=== PATIENT | female | born 1945 | race Caucasian/White ===

== ENCOUNTER 2017-02-06 08:14 | Inpatient (IN) | payer MEDICARE, OTHER ==
[2017-02-06] MEDS ORDERED: IPRATROPIUM/ALBUTEROL 0.5/3 MG 3 ML AMPUL.NEB INHALATION ONE ×2 (08:33→09:05)
[2017-02-06 09:13] LABS: BASOPHILS 0.3 % (0.0-2.0); BLOOD UREA NITROGEN 12 mg/dL (7-17); CALCIUM 9.6 mg/dL (8.4-10.2); CHLORIDE 105 mmol/L (98-107); EOSINOPHILS# 0.2 X 10^3uL (0.0-0.4); EST GLOMERULAR FILTRATION RATE > 60 mL/min; GLUCOSE 126 mg/dL (70-100); HEMATOCRIT 35.6 % (36.0-48.0); HEMOGLOBIN 11.4 g/dL (12.0-16.0); LYMPHOCYTES# 1.4 X 10^3uL (0.8-3.8); MEAN CELL VOLUME 84.1 fL (80.0-100.0); MEAN CORPUS. HGB CONCENTRATION 32.2 g/dL (32.0-36.0); MEAN CORPUSCULAR HEMOGLOBIN 27.1 pg (29.0-35.0); MEAN PLATELET VOLUME 8.1 fL (7.4-10.4); MONOCYTES 10.5 % (2.0-10.0); MONOCYTES# 1.6 X 10^3uL (0.2-1.0); NEUTROPHILS 79.2 % (54.0-75.0); NEUTROPHILS# 12.2 X 10^3uL (2.6-6.7); POTASSIUM 3.6 mmol/L (3.5-5.1); RED BLOOD COUNT 4.23 X 10^6uL (4.20-6.10); SODIUM 140 mmol/L (137-145); WHITE BLOOD COUNT 15.4 X 10^3uL (3.9-10.7)
[2017-02-06] MEDS ORDERED: cefTRIAXone SODIUM 1,000 MG/10 ML VIAL ONE (09:13)
[2017-02-06] MEDS ORDERED: AZITHROMYCIN 250 MG TABLET PO ONE (09:13)
[2017-02-06] MEDS ORDERED: NORMAL SALINE 100 ML IV ONE (09:13)
[2017-02-06] MEDS ORDERED: FAMOTIDINE 20 MG TABLET PO PRN (09:29)
[2017-02-06] MEDS ORDERED: ACETAMINOPHEN 325 MG TABLET PO PRN (09:29)
[2017-02-06] MEDS ORDERED: HOME MEDICATION LIST NEEDED 1 EA EACH MC ONE (09:29)
[2017-02-06 09:32] LABS: PLATELET COUNT 684 X 10^3uL (130-440)
[2017-02-06 09:34] LABS: RED CELL DISTRIBUTION WIDTH 16.6 % (11.5-14.5)
[2017-02-06] MEDS ORDERED: METHYLPREDNISOLONE SOD 125 MG/2 ML VIAL ONE (09:39)
--- NOTE | 2017-02-06 09:42 | RADIOLOGY REPORT ---
HISTORY: Shortness of breath COMPARISON: None. FINDINGS: 1 view of the chest obtained. Hyperinflated appearance of the lungs with mild increased interstitial markings most compatible with emphysema and pulmonary scarring. No discrete infiltrate. No effusion o r pneumothorax. Heart size is normal. Mediastinal contours are unremarkable. Degenerative changes of the thoracic spine. Otherwise the osseous structures appear normal. IMPRESSION: 1. Manifestations of emphysema and interstitial scarring. 2. No discrete active disease in the chest. Final Electronic Signature: This report was electronically signed by Baldo Miles MD on 02/06/2017 9:40 AM. ash /
--- NOTE | 2017-02-06 09:52 | ER PHYSICIAN DOCUMENTATION ---
Physician Documentation [facility] Name:Christal Ragland Age:71 yrs Sex:Female :1945 Arrival Date:02/06/2017 Time:08:14 Bed4 Private MD: Santos Ruiz Disposition: 02/06 09:25 Critical Care: not applicable. cd 09:50 Chart complete. cd Disposition: 02/06/17 09:26 Admit ordered for Cristina Rodriguez. Preliminary diagnosis are Pneumonia Bacterial, Hypoxia, Bronchospasm- Acute. - Bed requested for Medical/Surgical. - Condition is Fair. - Problem is new. - Symptoms have improved. 23 HR OBS Yes HPI: 09:45 This 71 yrs old Female presents to ER via Private Vehicle with complaints of cd Shortness Of Breath, cough and sputum production. 09:45 The patient has shortness of breath at rest, that occurred at home, and the patient has cd a history of smoking, quit 20 years ago. No history of COPD, Asthma, PE, [place], CAD or recent Pneumonia. The patient started with a cough and yellow sputum production 3 weeks ago in [place] before leaving for [place]. It has continued over the past few weeks. She has had no fever but some chills. No rigors. This morning she and her were supposed to leave for [place], but she was SOB and had a deep cough with wheezing. She denies calf swelling or pain. She has had very mild chest discomfort that increases with her cough. She if on Rituxan, Methotrexate and Prednisone for her Rheumatoid Arthritis. She is currently on 10 mg of Prednisone each day.. Onset: The symptom(s)/episode began/occurred gradually, 3 week(s) ago. Duration: The symptoms are continuous, and are steadily getting worse. The patient's shortness of breath is aggravated by coughing, is alleviated by nebulizer treatment, in the ED helped. Associated signs and symptoms: Pertinent positives: chest pain, productive cough, Pertinent negatives: diaphoresis, dizziness, fever, hemoptysis, nausea, vomiting. Severity of symptoms: At their worst the symptoms were moderate in the emergency department the symptoms are unchanged. Risk Factors Risk factors for coronary artery disease include: This patient is a smoker. The risk factors for pulmonary embolism include: This patient is a smoker. This patient has been traveling recently. The patient has not experienced similar symptoms in the past. Historical: - Allergies: No known drug Allergies; - Home Meds: 1. Prednisone Oral 2. Folic Acid Oral 3. Amoxicillin Oral - PMHx: ARTHRITIS; - Tetanus: < 10 years. - Ebola Screening: : Patient denies exposure to infectious person. Patient denies travel to an Ebola-affected area in the 21 days before illness onset. . - Social history: Smoking status: Patient states was never smoker of tobacco. Patient uses alcohol occasionally. marijuana. ROS: 09:45 ENT: Negative for injury, pain, epistaxis and discharge. cd Neck: Negative for injury, pain, stiffness and swelling. Abdomen/GI: Negative for abdominal pain, nausea, vomiting, diarrhea, constipation, distension, melena, hematochezia and hematemesis. Back: Negative for injury, pain or muscle spasms. : Negative for injury, bleeding, discharge, dysuria, frequency, urgency and swelling. MS/Extremity: Negative for injury, deformity, edema, calf tenderness, pain or coldness. Skin: Negative for injury, rash, itching and discoloration. 09:45 Neuro: Negative for headache, weakness, numbness, tingling, and seizure. cd 09:45 Constitutional: Positive for chills, poor PO intake, Negative for fever. 09:45 Cardiovascular: Positive for chest pain, with cough, Negative for edema, palpitations. 09:45 Respiratory: Positive for cough, with yellow sputum, shortness of breath, wheezing, Negative for hemoptysis, orthopnea, pleurisy. 09:45 All other systems are negative. Exam: Head/Face: Normocephalic, atraumatic. Eyes: Pupils equal round and reactive to light, extra-ocular motions intact. Lids and lashes normal. Conjunctiva and sclera are non-icteric and not injected. Cornea within normal limits. Periorbital areas with no swelling, redness, or edema. ENT: Nares patent. No nasal discharge, no septal abnormalities noted. Tympanic membranes are normal and external auditory canals are clear. Oropharynx with no redness, swelling, or masses, exudates, or evidence of obstruction, uvula midline. Mucous membranes moist. Neck: Trachea midline, no thyromegaly or masses palpated, and no cervical lymphadenopathy. Supple, full range of motion without nuchal rigidity, or vertebral point tenderness. No Meningismus. Chest/axilla: Normal chest wall appearance and motion. Nontender with no deformity. No lesions are appreciated. Abdomen/GI: Soft, non-tender, with normal bowel sounds. No distension or tympany. No guarding or rebound. No evidence of tenderness throughout. Back: No spinal tenderness. No costovertebral tenderness. Full range of motion. Skin: Warm, dry with normal turgor. Normal color with no rashes, no lesions, and no evidence of cellulitis. MS/ Extremity: Pulses equal, no cyanosis. Neurovascular intact. Full, normal range of motion. 09:45 Neuro: Awake and alert, GCS 15, oriented to person, place, time, and situation. cd Cranial nerves II-XII grossly intact. Motor strength 5/5 in all extremities. Sensory grossly intact. Cerebellar exam normal. Normal gait. 09:45 Constitutional: The patient appears alert, awake, non-diaphoretic, non-toxic, well developed, well nourished, in obvious distress, moderately distressed. 09:45 Cardiovascular: Rate: tachycardic, actual rate is 110 bpm, Rhythm: regular, Pulses: no pulse deficits are appreciated, Heart sounds: normal, Edema: is not appreciated. 09:45 Respiratory: mild respiratory distress is noted, Respirations: labored breathing, that is mild, accessory muscle usage, is absent, intercostal retractions, are absent, Breath sounds: rales, that are moderate, are located in both bases, rhonchi, that are mild, are scattered, wheezing, that is moderate, is heard diffusely. Vital Signs: 08:15 BP 137 / 99; Pulse 117; Resp 28; Temp 98.7; Pulse Ox 82% on R/A; Pain 3/10; st 09:26 BP 135 / 93 (auto/); st 09:30 Pulse 109 MON; Resp 23; Pulse Ox 90% on 4 lpm NC; st [place] Coma Score: 09:45 Eye Response: spontaneous(4). Verbal Response: oriented(5). Motor Response: obeys cd commands(6). Total: 15. MDM: 08:24 Patient medically screened. cd 08:25 Data interpreted: Pulse oximetry: on room air is 82 %. Interpretation: hypoxia. Plan: cd will initiate a nebulizer treatment. 08:40 Differential diagnosis: Anemia asthma, CHF exacerbation, Chronic Obstructive Pulmonary cd Disease Myocardial Infarction pneumonia, pulmonary edema, Pulmonary Embolism Sepsis. 08:50 Data reviewed: vital signs, nurses notes, old medical records, lab test result(s), EKG, cd radiologic studies, plain films, and as a result, I will admit patient, administer antibiotics Rocephin, Zithromax, administer steroids, Solumedrol, and Duonebs. 09:05 Antibiotic administration: Rocephin and Zithromax given. 09:20 Counseling: I had a detailed discussion with the patient and/or guardian regarding: the cd historical points, exam findings, and any diagnostic results supporting the discharge/admit diagnosis, lab results, radiology results, the need for further work-up and treatment in the hospital, risk of leaving the Emergency Department, without completed treatment. ECG:. Response to treatment: the patient's symptoms have markedly improved after treatment, and as a result, I will admit patient. 02/06 09:17 Order name: BASIC METABOLIC PANEL; Complete Time: 10:59 [facility] 02/06 09:23 Interpretation: Normal Except: CARBON DIOXIDE 21; GLUCOSE 126. 02/06 09:35 Order name: CBC AUTO DIF, MDIF/RMOR IF IND; Complete Time: 10:59 [facility] 02/06 09:36 Interpretation: Abnormal: WHITE BLOOD COUNT 15.4; HEMOGLOBIN 11.4; HEMATOCRIT 35.6; PLATELET COUNT 684; NEUTROPHILS 79.2; Elevated WBC with Left shift, Anemia, Thrombocytosis. 02/06 10:10 Order name: TROPONIN I; Complete Time: 10:59 [facility] 02/06 10:59 Interpretation: Normal. 02/06 14:58 Order name: SPUTUM CULTURE AND GRAM STAIN [facility] 02/07 07:39 Order name: CBC AUTO DIF, MDIF/RMOR IF IND [facility] 02/07 07:45 Order name: BASIC METABOLIC PANEL [facility] 02/07 07:45 Order name: HEPATIC PANEL [facility] 02/07 07:45 Order name: TROPONIN I [facility] 02/07 08:58 Order name: BLOOD CULTURE [facility] 02/07 08:58 Order name: BLOOD CULTURE [facility] 02/07 11:25 Order name: DDIMER [facility] 02/07 18:51 Order name: C-REACTIVE PROTEIN [facility] 02/08 07:09 Order name: BASIC METABOLIC PANEL [facility] 02/08 07:09 Order name: IRON PANEL [facility] 02/08 07:39 Order name: CBC W/ MANUAL DIFFERENTIAL [facility] 02/08 08:02 Order name: OCCULT BLOOD (1-3 SAMPLES) [facility] 02/08 08:07 Order name: C-REACTIVE PROTEIN [facility] 02/08 09:02 Order name: TROPONIN I [facility] 02/06 09:44 Order name: CHEST; SINGLE [place]IEW [id number]; Complete Time: 09:46 [facility] 02/07 13:48 Order name: CXR 2V [id number] [facility] 02/06 08:30 Order name: I & O; Complete Time: 09:16 st 02/06 08:30 Order name: Oxygen; Complete Time: 09:16 st 02/06 08:30 Order name: Place Patient On Monitor; Complete Time: 09:29 st 02/06 08:30 Order name: Pulse Ox Continuous; Complete Time: 08:31 st 02/06 09:44 Order name: EKG - 12 Lead cd EC:45 Rate is 95 beats/min. Rhythm is regular. TX interval is normal. QRS interval is normal. cd QT interval is normal. No Q waves. T waves are Normal. No ST changes noted. Clinical impression: Normal ECG, No evidence of ischemia, and Left Anterior Fasicular Block. Interpreted by me. Dispensed Medications: 08:20 Drug: DuoNeb (Albuterol 2.5 mg, Atrovent 0.5 mg); 3 ml; Route: Nebulizer; st 09:50 Follow up: Response: helped a little st 08:52 Drug: DuoNeb (Albuterol 2.5 mg, Atrovent 0.5 mg); 3 ml; Route: Nebulizer; st 09:51 Follow up: Response: helped some more st 09:03 Drug: Rocephin 1 grams; Route: IVPB; Site: left forearm; st 09:20 Follow up: IV Status: Completed infusion; IV Intake: 100ml st 09:03 Drug: Zithromax 500 mg; Route: PO; st 09:51 Follow up: Response: No adverse reaction st 09:28 Drug: Solu-MEDROL 80 mg; Route: IVP; Site: left forearm; st 09:51 Follow up: Response: No adverse reaction st Signatures: Tri Perez, RN RN Santos Hamlin MD MD cd
--- NOTE | 2017-02-06 09:52 | ER NURSING DOCUMENTATION ---
Nurse's Notes [facility] Name:Christal Ragland Age:71 yrs Sex:Female :1945 Arrival Date:02/06/2017 Time:08:14 Bed4 Private MD: Diagnosis:Pneumonia Bacterial;Hypoxia;Bronchospasm- Acute Presentation: 02/06 08:15 Presenting complaint: Patient states: pt states she has had a Sinus infection for a few st days and woke up this AM unable to breath. Transition of care: Home. 08:15 Method Of Arrival: Private Vehicle st 08:28 Acuity: CLARISA 2 st 08:31 Notified ED Physician of Dr. Singh notified. st Triage Assessment: 08:15 General: Appears uncomfortable, panting for breath troubles talking in full sentances.. st Behavior is cooperative. Pain: Complains of pain in chest Pain currently is 3 out of 10 on a pain scale. Cardiovascular: tachy. Heart tones present Rhythm is sinus tachycardia. Respiratory: Airway is patent Respiratory effort is even, labored, Respiratory pattern is regular, symmetrical, Sputum is yellow Breath sounds with wheezes bilaterally. Reports shortness of breath at rest on exertion cough that is productive, pain with cough Onset: The symptoms/episode began/occurred gradually, the patient has moderate shortness of breath. GI: No deficits noted. Historical: - Allergies: No known drug Allergies; - Home Meds: 1. Prednisone Oral 2. Folic Acid Oral 3. Amoxicillin Oral - PMHx: ARTHRITIS; - Tetanus: < 10 years. - Ebola Screening: : Patient denies exposure to infectious person. Patient denies travel to an Ebola-affected area in the 21 days before illness onset. . - Social history: Smoking status: Patient states was never smoker of tobacco. Patient uses alcohol occasionally. marijuana. Screenin:34 Infectious Disease Risk None. Abuse screen: Denies threats or abuse. Denies injuries st from another. pt feels safe at home. Nutritional screening: No deficits noted. Assessment: 09:40 General: pt lungs are not as tight. There are still expiatory wheezes and crackles in st all camacho. . Vital Signs: 08:15 BP 137 / 99; Pulse 117; Resp 28; Temp 98.7; Pulse Ox 82% on R/A; Pain 3/10; st 09:26 BP 135 / 93 (auto/); st 09:30 Pulse 109 MON; Resp 23; Pulse Ox 90% on 4 lpm NC; [address] [place] Coma Score: 09:45 Eye Response: spontaneous(4). Verbal Response: oriented(5). Motor Response: obeys cd commands(6). Total: 15. ED Course: 08:14 Patient arrived in ED. ds 08:20 Oxygen Oxygen administration via nasal cannula @ 2L/min. st 08:20 Valuables Patient has correct armband on for positive identification. Placed in gown. st Bed in low position. Call light in reach. Side rails up X 1. monitoring analyst on. Pulse ox on. NIBP on. 08:23 Santos Singh MD is Attending Physician. cd 08:28 Tri Perez RN is Primary Nurse. st 08:[address] 08:31 Port Xray Completed. pm1 08:40 First set of blood cultures drawn by me. Inserted peripheral IV: [address] forearm and blood collected. 09:00 Oxygen Oxygen administration via nasal cannula @ 4L/min. st 09:25 Cristina Rodriguez MD is Admitting Physician. cd 09:50 EKG done per protocol. Performed by ED Staff. Shown to ED physician. st Administered Medications: 08:20 Drug: DuoNeb (Albuterol 2.5 mg, Atrovent 0.5 mg); 3 ml; Route: Nebulizer; st 09:50 Follow up: Response: helped a little st 08:52 Drug: DuoNeb (Albuterol 2.5 mg, Atrovent 0.5 mg); 3 ml; Route: Nebulizer; st 09:51 Follow up: Response: helped some more st 09:03 Drug: Rocephin 1 grams; Route: IVPB; Site: left forearm; st 09:20 Follow up: IV Status: Completed infusion; IV Intake: 100ml st 09:03 Drug: Zithromax 500 mg; Route: PO; st 09:51 Follow up: Response: No adverse reaction st 09:28 Drug: Solu-MEDROL 80 mg; Route: IVP; Site: left forearm; st 09:51 Follow up: Response: No adverse reaction st Intake: 09:20 IV: 100ml; Total: 100ml. st Outcome: 09:26 Decision to Admit by Provider. cd 09:50 Admitted to Med/surg accompanied by nurse. st 09:50 Condition: stable 09:50 Instructed on need to admit 09:51 Patient [address] the ED. st Signatures: Tri Perez RN RN st Lorelei Coyne, Santos Meraz MD MD cd McBride, Philisha pm1
[2017-02-06 10:09] LABS: TROPONIN I < 0.012 ng/mL (0.00-0.034)
[2017-02-06] MEDS: IPRATROPIUM/ALBUTEROL 0.5/3 MG 3 ML AMPUL.NEB IH SCH ×4 (10:41→21:50)
[2017-02-06] MEDS: NORMAL SALINE 1,000 ML IV SCH ×2 (10:48→18:25)
[2017-02-06] MEDS: GUAIFENESIN ER 600 MG TABLET PO SCH ×2 (10:49→21:50)
[2017-02-06] MEDS ORDERED: FOLIC ACID 1 MG TABLET PO SCH (13:30)
--- NOTE | 2017-02-06 13:43 | HISTORY AND PHYSICAL ---
PROVIDER: Date of Admission: 02/06/17 Admitting Provider: GISELA SCHUMACHER MD Attending Provider: GISELA SCHUMACHER MD Primary Care Provider: CHIEF COMPLAINT: Shortness of breath HISTORY OF PRESENT ILLNESS: This is a 71-year-old white female who is a summer resident visiting from [place] who presented to the emergency room with a two-week history of upper respiratory infection symptoms including postnasal drainage, productive cough, and increasing shortness of breath. She had called her primary care provider in [place] several days ago who prescribed amoxicillin which she has taken for the past 4 days. She states that she woke up this morning and had severe shortness of breath and then came to the emergency room. She has had chills and sweats but no known fevers at home. Her cough has been productive of yellow sputum. She describes a gurgling in her chest With wheezing. She states she has never had any prior lung issues and has never had pneumonia in the past. She has had some chest tightness which is improved after being given nebulizers in the emergency room. She has had a decreased oral intake and decreased urine output. PAST MEDICAL HISTORY: Rheumatoid arthritis diagnosed 14 years ago. PAST SURGICAL HISTORY: Normal spontaneous vaginal delivery 2. SOCIAL HISTORY: . Second marriage for both she and her . 2 children and 2 stepchildren. 7 grandchildren. They have a family home here in [place] and they come every January. They live the rest of the year in [place]. She is a former smoker. She smoked 1-2 packs per day for 20+ years. She is a social drinker 5-6 drinks per week. FAMILY HISTORY: Dad age 38 from lightning strike. Mom at age 98 from congestive heart failure and had a history of chronic renal failure. Brother is 67 and healthy sister is 70 and healthy. MEDICATIONS: . 1. Methotrexate 2.5 mg 8 tabs weekly 2. Prednisone 5 mg daily. 3. Folate 1 mg daily. 4. Rituxan every 1-2 years. ALLERGIES: No known drug allergies. REVIEW OF SYSTEMS: GENERAL:She has had fatigue in the last few days. SKIN:No rash HEEN. No eye drainage, no ear pain,. Sore throat. NECK:No neck stiffness. RESPIRATORY:As above. CARDIOVASCULAR:Chest tightness as above. GASTROINTESTINAL:No abdominal pain, no nausea or vomiting, no diarrhea. GENITOURINARY:No dysuria. No frequency or urgency. MUSCULOSKELETAL:No myalgias or arthralgias. NEUROLOGICAL:No history of seizures or strokes. PSYCHIATRIC:She states she is still emotional about the of her father when he was only 38. ENDOCRINE:No history of diabetes. HEMATOLOGY:No known prior history of anemia. VITAL SIGNS: Temperature 98.7. Pulse 177. Respiratory rate 28. Blood pressure 135/93. 82 % on room air. PHYSICAL EXAMINATION: GENERAL:Awake, alert, in no respiratory distress. She is speaking full sentences without difficulty. She has some audible wheezing with coughing. INTEGUMENTARY:Capillary refill is brisk. No rash. HEAD AND NECK:Atraumatic normocephalic. EYE: Pupils equal round reactive to light. Extraocular movements intact. Sclerae are clear. ENMT:TMs are clear. Nares are boggy and congested. Yellow rhinorrhea. CHEST AND LUNG:Fair aeration throughout with diffuse inspiratory and expiratory wheezing and rales. CARDIOVASCULAR:Regular rate and rhythm without any murmurs rubs or gallops. ABDOMEN:Soft, nontender, nondistended, with good bowel sounds and no masses or hepatosplenomegaly. PERIPHERAL VASCULAR: Nontender, no palpable cords, negative Homans sign, no cyanosis, no clubbing, no edema. NEUROLOGIC:Awake and alert, oriented 3. Cranial nerves II through XII grossly intact without focal deficits. Motor, sensation, and DTRs are intact. She was examined while in bed. I have not observed her walking. NEUROPSYCHIATRIC:Affect and mood are normal. She is tearful when she talks about her dad dying when she was quite young. LYMPHATICS:No cervical or supraclavicular lymphadenopathy. LABORATORY: CBC shows WBC 15.4. Hgb 11.4. Hct 35.6. Plts 684. BMP normal. Troponin negative. IMAGING: CXR: COPD changes. No acute changes. EKG: No acute changes. Assessment and Plan - Date of Encounter Date of Encounter: 02/06/17 (1) Pneumonia Status: Acute Qualifiers: Pneumonia type: due to unspecified organism Laterality: bilateral Lung location: lower lobe of lung Qualified Code(s): J18.9 - Pneumonia, unspecified organism Assessment and plan: CXR was officially read as clear without infiltrates. However, I suspect that she is dehydrated. Treat for pneumonia with Rocephin and azithromycin. IV steroids. Duonebulizers. IS. Oxygen. RT consult. BCx and sputum cx pending. Current Visit: Yes (2) Hypoxemia Status: Acute Assessment and plan: She was 82% on RA upon admission to the ED. She required as much as 4L of oxygen. Now requiring 3L. Follow closely and wean as tolerated. Current Visit: Yes (3) Anemia Status: Acute Qualifiers: Anemia type: unspecified type Qualified Code(s): D64.9 - Anemia, unspecified Assessment and plan: Unknown baseline. Recheck in the morning. Heme check stools. Current Visit: Yes (4) Leukocytosis Status: Acute Qualifiers: Leukocytosis type: other Qualified Code(s): D72.828 - Other elevated white blood cell count Assessment and plan: WBC 15.4. Follow. Anticipate further increase in WBC with IV steroids. Current Visit: Yes (5) Thrombocytosis Status: Acute Assessment and plan: Probably related to acute phase reactant. Follow. Current Visit: Yes (6) Rheumatoid arthritis Status: Chronic Qualifiers: Rheumatoid factor presence: unspecified presence Laterality: unspecified laterality Assessment and plan: Overall stable. Continue chronic medications. Current Visit: Yes - Time Spent With Patient Total time spent with greater than 50% in coordination of care (as documented) at patient's floor/unit and/or counseling patient: Greater than 35 minutes Estimated anticipated discharge: 1-3 days.
[2017-02-06] MEDS ORDERED: O2 HUMIDIFIER 650 ML BOTTLE INHALATION ONE (14:01)
[2017-02-06] MEDS: METHYLPREDNISOLONE SOD 125 MG/2 ML VIAL IV SCH ×2 (14:55→20:57)
[2017-02-06] MEDS: CHOLECALCIFEROL 1,000 UNIT CAPSULE PO SCH (14:56)
[2017-02-06] MEDS: CALCIUM CARBONATE 500 MG TABLET PO SCH (14:56)
[2017-02-06] MEDS: POLYVINYL ALCOHOL 1.4% OPHTH 75 DROP/15 ML BTL OPHTHALMIC SCH (19:28)
[2017-02-06] MEDS ORDERED: POLYVINYL ALCOHOL 1.4% OPHTH 75 DROP/15 ML BTL ONE (19:37)
[2017-02-07] MEDS: METHYLPREDNISOLONE SOD 125 MG/2 ML VIAL IV SCH ×4 (03:08→21:16)
[2017-02-07] MEDS: IPRATROPIUM/ALBUTEROL 0.5/3 MG 3 ML AMPUL.NEB IH SCH ×6 (03:08→22:04)
[2017-02-07] MEDS: NORMAL SALINE 1,000 ML IV SCH (04:41)
[2017-02-07 07:30] LABS: HEMATOCRIT 32.2 % (36.0-48.0); HEMOGLOBIN 10.3 g/dL (12.0-16.0); LYMPHOCYTES 4.8 % (20.0-40.0); MEAN CORPUSCULAR HEMOGLOBIN 27.4 pg (29.0-35.0); MEAN PLATELET VOLUME 7.6 fL (7.4-10.4); RED BLOOD COUNT 3.76 X 10^6uL (4.20-6.10); RED CELL DISTRIBUTION WIDTH 13.9 % (11.5-14.5)
[2017-02-07 07:31] LABS: BASOPHIL# 0.2 X 10^3uL (0.0-0.1); BASOPHILS 0.6 % (0.0-2.0); EOSINOPHILS 1.4 % (0.0-6.0); EOSINOPHILS# 0.4 X 10^3uL (0.0-0.4); LYMPHOCYTES# 1.2 X 10^3uL (0.8-3.8); MONOCYTES 3.6 % (2.0-10.0); MONOCYTES# 0.9 X 10^3uL (0.2-1.0); NEUTROPHILS# 22.4 X 10^3uL (2.6-6.7)
[2017-02-07 07:33] LABS: ALBUMIN 3.3 g/dL (3.5-5.0); ALKALINE PHOSPHATASE 134 U/L (38-126); ALT 34 U/L (9-52); AST 20 U/L (14-36); BILIRUBIN, DIRECT 0.2 mg/dL (0.0-0.4); BILIRUBIN, TOTAL 0.3 mg/dL (0.2-1.3); BLOOD UREA NITROGEN 9 mg/dL (7-17); CALCIUM 9.9 mg/dL (8.4-10.2); CHLORIDE 107 mmol/L (98-107); EST GLOMERULAR FILTRATION RATE > 60 mL/min; GLUCOSE 140 mg/dL (70-100); POTASSIUM 4.4 mmol/L (3.5-5.1); SODIUM 141 mmol/L (137-145); TOTAL PROTEIN 6.1 g/dL (6.3-8.2)
[2017-02-07 07:38] LABS: NEUTROPHILS 89.6 % (54.0-75.0)
[2017-02-07 07:44] LABS: TROPONIN I < 0.012 ng/mL (0.00-0.034)
[2017-02-07] MEDS: CALCIUM CARBONATE 500 MG TABLET PO SCH (09:14)
[2017-02-07] MEDS: CHOLECALCIFEROL 1,000 UNIT CAPSULE PO SCH (09:15)
[2017-02-07] MEDS: AZITHROMYCIN 250 MG TABLET PO SCH (09:15)
[2017-02-07] MEDS: GUAIFENESIN ER 600 MG TABLET PO SCH ×2 (09:16→21:16)
[2017-02-07] MEDS: POLYVINYL ALCOHOL 1.4% OPHTH 75 DROP/15 ML BTL OPHTHALMIC SCH (09:17)
--- NOTE | 2017-02-07 11:01 | PROGRESS NOTE: IM SOAP ---
IM: PN Subjective General: fatigue (But improved. ), anxiety, depression (She is very anxious at her baseline. She continues to be quite tearful. ), good appetite, no confusion, no diaphoresis, no fever, no chills Cardiovascular: chest pain, chest pressure (Midsternal area. ) Respiratory: SOB (But improved. ) Gastrointestinal: bloating, no abdominal pain, no nausea, no vomiting Genitourinary: no flank pain Musculoskeletal: no pain Integumentary: no rashes Neurological: numbness (BUE. ), tingling, no headache IM: PN Objective Exam - I&O/Vital Signs I&O: Intake & Output 02/06/17 02/07/17 02/07/17 21:59 05:59 13:59 Intake Total 1690 1700 Output Total 250 1000 Balance 1440 700 Intake: IV 600 1100 Left Forearm 600 1100 Oral 1090 600 Output: Urine 250 1000 Other: Urine Appearance Clear Clear Urine Color Yellow Yellow Stool Size Moderate Stool Characteristics Formed Brown Voiding Method Toilet Toilet # Voids 1 # Bowel Movements 1 Vital Signs: Last Vital Signs Temp 36.6 C 02/07/17 06:58 Pulse 69 02/07/17 06:58 Resp 19 02/07/17 06:58 BP 112/72 02/07/17 06:58 Pulse Ox 83 L 02/07/17 10:43 Oxygen Flow Rate 2 Oxygen Delivery Method Room Air - Constitutional General appearance: Present: average body habitus, cooperative, mild distress - Head Head exam: Present: atraumatic, normal inspection - Eye Eye exam: Present: EOMI, PERRL - ENT ENT exam: Present: mucous membranes moist - Neck Neck exam: Present: full ROM. Absent: meningismus - Respiratory Respiratory exam: Present: chest wall tenderness (Midsternal area), decreased breath sounds (Throughout. ), rales (Bibasilar.), rhonchi, wheezes. Absent: accessory muscle use, respiratory distress - Cardiovascular Cardiovascular exam: Present: RRR. Absent: systolic murmur - GI/Abdominal GI/Abdominal exam: Present: distended, normal bowel sounds, soft. Absent: tenderness - Extremities Exam Extremities exam: Absent: calf tenderness, edema, tenderness - Back Exam Back exam: Absent: CVA tenderness (L), CVA tenderness (R) - Neurological Exam Neurological exam: Present: alert, oriented X3 - Psychiatric Psychiatric exam: Present: anxious, depressed (Tearful.) - Skin Skin exam: Present: intact - Allied Health Notes Allied health notes reviewed: nursing, RT - Lab Labs: Laboratory Last Values WBC 25.0 X 10^3uL (3.9-10.7) H 02/07/17 06:25 RBC 3.76 X 10^6uL (4.20-6.10) L 02/07/17 06:25 Hgb 10.3 g/dL (12.0-16.0) L 02/07/17 06:25 Hct 32.2 % (36.0-48.0) L 02/07/17 06:25 MCV 86.0 fL (80.0-100.0) 02/07/17 06:25 MCH 27.4 pg (29.0-35.0) L 02/07/17 06:25 MCHC 32.0 g/dL (32.0-36.0) 02/07/17 06:25 RDW 13.9 % (11.5-14.5) 02/07/17 06:25 Plt Count 620 X 10^3uL (130-440) H 02/07/17 06:25 MPV 7.6 fL (7.4-10.4) 02/07/17 06:25 Neutrophils % 89.6 % (54.0-75.0) H 02/07/17 06:25 Lymphocytes % 4.8 % (20.0-40.0) L 02/07/17 06:25 Eosinophils % 1.4 % (0.0-6.0) 02/07/17 06:25 Basophils % 0.6 % (0.0-2.0) 02/07/17 06:25 Neutrophils # 22.4 X 10^3uL (2.6-6.7) H 02/07/17 06:25 Lymphocytes # 1.2 X 10^3uL (0.8-3.8) 02/07/17 06:25 Monocytes 3.6 % (2.0-10.0) 02/07/17 06:25 Monocytes # 0.9 X 10^3uL (0.2-1.0) 02/07/17 06:25 Eosinophils # 0.4 X 10^3uL (0.0-0.4) 02/07/17 06:25 Basophils # 0.2 X 10^3uL (0.0-0.1) H 02/07/17 06:25 Sodium 141 mmol/L (137-145) 02/07/17 06:25 Potassium 4.4 mmol/L (3.5-5.1) D 02/07/17 06:25 Chloride 107 mmol/L (98-107) 02/07/17 06:25 Carbon Dioxide 20 mmol/L (22-30) L 02/07/17 06:25 BUN 9 mg/dL (7-17) 02/07/17 06:25 Creatinine 0.6 mg/dL (0.5-1.0) 02/07/17 06:25 GFR Calculation > 60 mL/min 02/07/17 06:25 Glucose 140 mg/dL (70-100) H 02/07/17 06:25 Calcium 9.9 mg/dL (8.4-10.2) 02/07/17 06:25 Total Bilirubin 0.3 mg/dL (0.2-1.3) 02/07/17 06:25 Direct Bilirubin 0.2 mg/dL (0.0-0.4) 02/07/17 06:25 AST 20 U/L (14-36) 02/07/17 06:25 ALT 34 U/L (9-52) 02/07/17 06:25 Alkaline Phosphatase 134 U/L (38-126) H 02/07/17 06:25 Troponin I < 0.012 ng/mL (0.00-0.034) 02/07/17 06:25 Total Protein 6.1 g/dL (6.3-8.2) L 02/07/17 06:25 Albumin 3.3 g/dL (3.5-5.0) L 02/07/17 06:25 Assessment and Plan - Date of Encounter Date of Encounter: 02/07/17 (1) Pneumonia Status: Acute Assessment and plan: Repeat CXR this morning shows new infiltrate left costophrenic angle. Continue treatment for pneumonia with Rocephin and azithromycin. IV steroids. Duonebulizers. IS. Oxygen. RT consult. BCx are no growth to date and sputum GS shows scant GPC. Change from observation to inpatient given multiple medical issues and lungs worsened on exam. BC IVF. Current Visit: Yes (2) Hypoxemia Status: Acute Assessment and plan: She was 82% on RA upon admission to the ED. She required as much as 4L of oxygen. Now requiring 2L. Check DDimer. Follow closely and wean as tolerated. Current Visit: Yes (3) Anemia Status: Acute Assessment and plan: Unknown baseline. Decreased hemoglobin hematocrit this morning which is most likely dilutional. She has a history of rheumatoid arthritis. Check iron studies, B12, and folate. Heme check stools. Current Visit: Yes (4) Leukocytosis Status: Acute Assessment and plan: WBC has increased from 15.4 to 25.0, most likely due to IV steroids. Follow. Current Visit: Yes (5) Thrombocytosis Status: Acute Assessment and plan: Has mildly decreased, but still elevated. Probably related to acute phase reactant. Follow. Current Visit: Yes (6) Rheumatoid arthritis Status: Chronic Assessment and plan: Overall stable. Continue chronic medications. Current Visit: Yes (7) Malnutrition Status: Acute Assessment and plan: Dietary consult. Current Visit: Yes - Time Spent With Patient Total time spent with greater than 50% in coordination of care (as documented) at patient's floor/unit and/or counseling patient: 25 - 35 minutes Estimated anticipated discharge: 1-3 days. Quality Questions - VTE Prophylaxis Assessment Patient at risk for venous thromboembolism?: Yes VTE Risk Level: High Risk Pharmaceutical VTE prophylaxis contraindication reason: N/A- VTE prophylaxsis ordered Mechanical VTE prophylaxis contraindication reason: N/A- VTE prophylaxsis ordered (1) Pneumonia Qualifiers: Pneumonia type: due to unspecified organism Laterality: bilateral Lung location: lower lobe of lung Qualified Code(s): J18.9 - Pneumonia, unspecified organism (3) Anemia Qualifiers: Anemia type: unspecified type Qualified Code(s): D64.9 - Anemia, unspecified (4) Leukocytosis Qualifiers: Leukocytosis type: other Qualified Code(s): D72.828 - Other elevated white blood cell count (6) Rheumatoid arthritis Qualifiers: Rheumatoid factor presence: unspecified presence Laterality: unspecified laterality
[2017-02-07] MEDS: cefTRIAXone SODIUM 1,000 MG in NORMAL SALINE MINI-BAG+ 100 ML IV SCH (11:11)
[2017-02-07] MEDS: ENOXAPARIN SODIUM 40 MG/0.4 ML SYR SUBCUT SCH (11:58)
--- NOTE | 2017-02-07 13:27 | RADIOLOGY REPORT ---
Two views of the chest are compared with prior films dated 02/06/2017. Heart and vessels are stable and unremarkable. There has been development of small patchy infiltrate at the left costophrenic angle. The lung camacho are otherwise clear. No fluid or pneumothorax is seen. IMPRESSION: Development of a small patchy infiltrate at the left costophrenic angle. MTDD
[2017-02-07] MEDS ORDERED: MAG-AL PLUS XS SUSP 30 ML UDC PO ONE (21:18)
[2017-02-08] MEDS: IPRATROPIUM/ALBUTEROL 0.5/3 MG 3 ML AMPUL.NEB IH SCH ×6 (03:00→21:48)
[2017-02-08] MEDS: METHYLPREDNISOLONE SOD 125 MG/2 ML VIAL IV SCH (03:01)
[2017-02-08] MEDS: NORMAL SALINE 1,000 ML IV SCH (03:35)
[2017-02-08 06:53] LABS: BLOOD UREA NITROGEN 11 mg/dL (7-17); CALCIUM 9.2 mg/dL (8.4-10.2); CHLORIDE 109 mmol/L (98-107); EST GLOMERULAR FILTRATION RATE > 60 mL/min; GLUCOSE 106 mg/dL (70-100); IRON 14 ug/dL (37-170); POTASSIUM 4.1 mmol/L (3.5-5.1); SODIUM 142 mmol/L (137-145)
[2017-02-08 07:00] LABS: TOTAL IRON BINDING CAPACITY 358 ug/mL (250-400); TRANSFERRIN 240 mg/dL (206-381); TRANSFERRIN SATURATION 4 % (14-50)
[2017-02-08 07:36] LABS: HEMATOCRIT 30.7 % (36.0-48.0); HEMOGLOBIN 9.7 g/dL (12.0-16.0); MEAN CORPUSCULAR HEMOGLOBIN 27.3 pg (29.0-35.0); RED BLOOD COUNT 3.53 X 10^6uL (4.20-6.10); WHITE BLOOD COUNT 28.7 X 10^3uL (3.9-10.7)
[2017-02-08 07:37] LABS: LYMPHOCYTE % (Manual) 5 % (20.0-40.0); MEAN CORPUS. HGB CONCENTRATION 31.5 g/dL (32.0-36.0); MEAN PLATELET VOLUME 7.6 fL (7.4-10.4); MONOCYTE % (Manual) 4 % (2.0-10.0); NEUTROPHIL % (Manual) 91 % (54.0-75.0); PLATELET COUNT 672 X 10^3uL (130-440); RED CELL DISTRIBUTION WIDTH 14.5 % (11.5-14.5)
[2017-02-08 07:38] LABS: PLATELET ESTIMATE INCREASED
[2017-02-08] MEDS ORDERED: DIAZEPAM 5 MG TABLET PO SCH (08:45)
[2017-02-08] MEDS ORDERED: METHOTREXATE SODIUM 20 MG PO SCH ×2 (09:00→17:00)
--- NOTE | 2017-02-08 09:09 | PROGRESS NOTE: IM SOAP ---
IM: PN Subjective General: fatigue (Continues to improve. ), anxiety (Anxious about going into CT scan. ), depression (She is very anxious at her baseline. She continues to be quite tearful. ), good appetite, no confusion, no diaphoresis, no fever, no chills Cardiovascular: chest pain, chest pressure (Left inferior rib margin. ), no palpitations, no dizziness Respiratory: cough (Decereasing.), sputum (Yellow. ), SOB (But continues to improve. ) Gastrointestinal: bloating (Better with BM. ), no abdominal pain, no nausea, no vomiting Genitourinary: no flank pain Musculoskeletal: swelling (BLE. ), no pain (No joint pain related to her RA. ) Integumentary: no rashes Neurological: numbness (BUE. ), tingling, no headache IM: PN Objective Exam - I&O/Vital Signs I&O: Intake & Output 02/07/17 02/08/17 02/08/17 21:59 05:59 13:59 Intake Total 970 1700 Output Total 300 850 Balance 670 850 Weight 64.5 kg Intake: IV 950 Left Forearm 950 Oral 970 750 Output: Urine 300 850 Other: Urine Appearance Clear Clear Urine Color Yellow Yellow Stool Size Small Stool Characteristics Formed Voiding Method Toilet Toilet # Voids 3 # Bowel Movements 1 Vital Signs: Last Vital Signs Temp 36.7 C 02/08/17 07:00 Pulse 98 H 02/08/17 07:00 Resp 22 02/08/17 07:00 BP 133/84 02/08/17 07:00 Pulse Ox 84 L 02/08/17 07:51 Oxygen Flow Rate 1 Oxygen Delivery Method Room Air - Constitutional General appearance: Present: average body habitus, cooperative, mild distress ( Concerned about still being in the hospital. ) - Head Head exam: Present: atraumatic, normal inspection - Eye Eye exam: Present: EOMI, PERRL - ENT ENT exam: Present: mucous membranes moist - Neck Neck exam: Present: full ROM. Absent: meningismus - Respiratory Respiratory exam: Present: chest wall tenderness (Left inferir rib margin. ), decreased breath sounds (Throughout. ), rales (Bibasilar to 1/3 upward. ), rhonchi, wheezes (Scattered.). Absent: accessory muscle use, respiratory distress - Cardiovascular Cardiovascular exam: Present: RRR. Absent: systolic murmur - GI/Abdominal GI/Abdominal exam: Present: distended (But improved.), normal bowel sounds, soft. Absent: tenderness - Extremities Exam Extremities exam: Absent: calf tenderness, edema, tenderness - Back Exam Back exam: Absent: CVA tenderness (L), CVA tenderness (R) - Neurological Exam Neurological exam: Present: alert, oriented X3 - Psychiatric Psychiatric exam: Present: anxious, depressed (Tearful.) - Skin Skin exam: Present: intact - Allied Health Notes Allied health notes reviewed: nursing, RT - Lab Labs: Laboratory Last Values WBC 28.7 X 10^3uL (3.9-10.7) H 02/08/17 05:00 RBC 3.53 X 10^6uL (4.20-6.10) L 02/08/17 05:00 Hgb 9.7 g/dL (12.0-16.0) L 02/08/17 05:00 Hct 30.7 % (36.0-48.0) L 02/08/17 05:00 MCV 87.0 fL (80.0-100.0) 02/08/17 05:00 MCH 27.3 pg (29.0-35.0) L 02/08/17 05:00 MCHC 31.5 g/dL (32.0-36.0) L 02/08/17 05:00 RDW 14.5 % (11.5-14.5) 02/08/17 05:00 Plt Count 672 X 10^3uL (130-440) H 02/08/17 05:00 MPV 7.6 fL (7.4-10.4) 02/08/17 05:00 Total Counted 100 02/08/17 05:00 Neutrophils % 89.6 % (54.0-75.0) H 02/07/17 06:25 Neutrophils % (Manual) 91 % (54.0-75.0) H 02/08/17 05:00 Lymphocytes % 4.8 % (20.0-40.0) L 02/07/17 06:25 Lymphocytes % (Manual) 5 % (20.0-40.0) L 02/08/17 05:00 Monocytes % (Manual) 4 % (2.0-10.0) 02/08/17 05:00 Eosinophils % 1.4 % (0.0-6.0) 02/07/17 06:25 Basophils % 0.6 % (0.0-2.0) 02/07/17 06:25 Neutrophils # 22.4 X 10^3uL (2.6-6.7) H 02/07/17 06:25 Lymphocytes # 1.2 X 10^3uL (0.8-3.8) 02/07/17 06:25 Monocytes 3.6 % (2.0-10.0) 02/07/17 06:25 Monocytes # 0.9 X 10^3uL (0.2-1.0) 02/07/17 06:25 Eosinophils # 0.4 X 10^3uL (0.0-0.4) 02/07/17 06:25 Basophils # 0.2 X 10^3uL (0.0-0.1) H 02/07/17 06:25 Platelet Estimate Increased 02/08/17 05:00 Polychromasia 20-39% of cells 02/08/17 05:00 Hypochromic-Microcytic 20-39% of cells 02/08/17 05:00 Poikilocytosis 20-39% of cells 02/08/17 05:00 Anisocytosis 20-39% of cells 02/08/17 05:00 D-Dimer 231 ng/mL 02/07/17 10:57 Sodium 142 mmol/L (137-145) 02/08/17 05:00 Potassium 4.1 mmol/L (3.5-5.1) 02/08/17 05:00 Chloride 109 mmol/L (98-107) H 02/08/17 05:00 Carbon Dioxide 24 mmol/L (22-30) 02/08/17 05:00 BUN 11 mg/dL (7-17) 02/08/17 05:00 Creatinine 0.7 mg/dL (0.5-1.0) 02/08/17 05:00 GFR Calculation > 60 mL/min 02/08/17 05:00 Glucose 106 mg/dL (70-100) H 02/08/17 05:00 Calcium 9.2 mg/dL (8.4-10.2) 02/08/17 05:00 Iron 14 ug/dL (37-170) L 02/08/17 05:00 TIBC 358 ug/mL (250-400) 02/08/17 05:00 Transferrin 240 mg/dL (206-381) 02/08/17 05:00 Transferrin % Sat 4 % (14-50) L 02/08/17 05:00 Total Bilirubin 0.3 mg/dL (0.2-1.3) 02/07/17 06:25 Direct Bilirubin 0.2 mg/dL (0.0-0.4) 02/07/17 06:25 AST 20 U/L (14-36) 02/07/17 06:25 ALT 34 U/L (9-52) 02/07/17 06:25 Alkaline Phosphatase 134 U/L (38-126) H 02/07/17 06:25 Troponin I < 0.012 ng/mL (0.00-0.034) 02/08/17 06:35 C-Reactive Protein 63.3 mg/L (<10.0) H 02/08/17 06:35 Total Protein 6.1 g/dL (6.3-8.2) L 02/07/17 06:25 Albumin 3.3 g/dL (3.5-5.0) L 02/07/17 06:25 Assessment and Plan - Date of Encounter Date of Encounter: 02/08/17 (1) Pneumonia Status: Acute Assessment and plan: Repeat CXR yesterday showed new infiltrate left costophrenic angle. Continue treatment for pneumonia with Rocephin and azithromycin. Will change IV to oral steroids. Duonebulizers. IS. Oxygen. Appreciate RT consult. BCx are no growth to date and sputum GS shows scant GPC. IVF were not buff capped; have stopped IVF today. Give Lasix. DDimer negative. However, will check CTA chest today to more fully evaluate lungs. CXR showed evidence of COPD. She states that she has never had a history of COPD in the past and not underlying lung issues. Current Visit: Yes (2) Hypoxemia Status: Acute Assessment and plan: She was 82% on RA upon admission to the ED and 84% on RA this morning. She has required as much as 4L of oxygen. Now requiring 2L. DDimer negative as above. Check CTA chest as above. Suspect some fluid overload. IV Lasix. Recheck BMP this afternoon. Current Visit: Yes (3) Anemia Status: Acute Assessment and plan: Unknown baseline. However, she states that she has had mild anemia in the past treated successfully with oral supplementation x 2 months. She now has labs every 6 weeks as se is on Rituxan. Decreased hemoglobin and hematocrit again this morning which is most likely dilutional. Hemoccult x 1 negative. She has a history of rheumatoid arthritis. Iron studies show significant iron deficiency. B12 and folate pending. Continue to heme check stools. Long discussion with patient. She will need close follow-up as an outpatient. Recheck CBC this afternoon and if stable after diuresis, can consider discharge home. I have recommended spending the night in [place] and then driving back home. Current Visit: Yes (4) Leukocytosis Status: Acute Current Visit: Yes (5) Thrombocytosis Status: Acute Assessment and plan: Elevated platelets. Probably related to acute phase reactant. Follow. Current Visit: Yes (6) Rheumatoid arthritis Status: Chronic Assessment and plan: Overall stable. Continue chronic medications. Current Visit: Yes (7) Malnutrition Status: Acute Assessment and plan: Dietary consult. Current Visit: Yes (8) Anxiety Status: Chronic Assessment and plan: She states that she has a history of anxiety and depression which is not currently being treated. Will give oral Valium prior to CTA. Current Visit: Yes - Time Spent With Patient Total time spent with greater than 50% in coordination of care (as documented) at patient's floor/unit and/or counseling patient: Estimated anticipated discharge: 1-2 days. Quality Questions - VTE Prophylaxis Assessment VTE Present on Admission?: No Patient at risk for venous thromboembolism?: Yes VTE Risk Level: High Risk Pharmaceutical VTE prophylaxis contraindication reason: N/A- VTE prophylaxsis ordered Mechanical VTE prophylaxis contraindication reason: N/A- VTE prophylaxsis ordered (1) Pneumonia Qualifiers: Pneumonia type: due to unspecified organism Laterality: bilateral Lung location: lower lobe of lung Qualified Code(s): J18.9 - Pneumonia, unspecified organism (3) Anemia Qualifiers: Anemia type: iron deficiency Iron deficiency anemia type: unspecified iron deficiency Qualified Code(s): D50.9 - Iron deficiency anemia, unspecified (4) Leukocytosis Qualifiers: Leukocytosis type: other Qualified Code(s): D72.828 - Other elevated white blood cell count (6) Rheumatoid arthritis Qualifiers: Rheumatoid factor presence: unspecified presence Laterality: unspecified laterality
[2017-02-08] MEDS: FUROSEMIDE 20 MG/2 ML VIAL IV SCH (09:13)
[2017-02-08] MEDS: CALCIUM CARBONATE 500 MG TABLET PO SCH (09:15)
[2017-02-08] MEDS: ENOXAPARIN SODIUM 40 MG/0.4 ML SYR SUBCUT SCH (09:15)
[2017-02-08] MEDS: AZITHROMYCIN 250 MG TABLET PO SCH (09:15)
[2017-02-08] MEDS: CHOLECALCIFEROL 1,000 UNIT CAPSULE PO SCH (09:15)
[2017-02-08] MEDS: predniSONE 20 MG TABLET PO SCH (09:21)
--- NOTE | 2017-02-08 11:32 | CT REPORT ---
HISTORY: Hypoxemia. Chest pain. Pneumonia. COMPARISON: Relation is made with chest x-ray dated 02/07/2013 TECHNIQUE: This examination was performed using automated exposure control, adjustment of mA or kV according to patient size, and/or use of iterative reconstruction technique. Axial CT imaging from the thoracic i nlet through the upper abdomen following administration of IV contrast during peak opacification of t he pulmonary arteries, multiplanar reformatted and 3-D images are evaluated. 100cc Isovue 300 and contrast. FINDINGS: Lungs are adequately aerated. There is linear opacification in the dependent portions of the right up per lobe as well as the right and left lower lobes. This is most suggestive of atelectasis. This is m ost pronounced in the right base. There are scattered areas of peripheral reticular nodular opacifica tion in a tree in bud type configuration visualized in the posterior, lateral aspect of the right upp er lobe (image 34 of 89 on series 5). Similar changes are also visualized in the peripheral aspect of the right and to a lesser degree the left lower lobes. No confluent infiltrate. There is subsegmenta l groundglass opacity in the medial aspect of the right lower lobe and dependent portion of the left lower lobe. There is mild bilateral airways thickening. No interstitial disease. No subpleural honeyc ombing. No pneumothorax or pleural effusion. The heart is not enlarged. Thoracic aorta demonstrates no aneurysm or dissection. There is no mediast inal hematoma. Thoracic inlet demonstrates mildly heterogeneous enhancement of the thyroid. There is no superior mediastinal mass. There is right peritracheal and precarinal carinal adenopathy. The pret zoraida node at the level of the jonn measures 1.6 cm in diameter. The right paratracheal node terra ures 2.4 x 1.4 cm. There is a 1.7 x 2.2 cm subcarinal node. The thoracic vertebral body heights are maintained. There is no compression deformity. Is multilevel degenerative disease with disc space during endplate sclerosis and marginal osteophytes throughout th e mid and lower thoracic spine and upper lumbar spine. The visualized organs of the upper abdomen are unremarkable. IMPRESSION: 1. There are scattered subsegmental areas of reticular nodular opacity in a tree-in-bud configuration . Differential diagnosis includes infective bronchiolitis including the tuberculosis, atypical mycobact erial infection, fungal pneumonia pneumocystis or noninfectious inflammatory bronchiolitis, connectiv e tissue disorders and neoplasm. Neoplasm is unlikely but this pattern can be seen with metastatic di sease, pulmonary lymphoma or chronic lymphocytic leukemia. 2. Mediastinal adenopathy which could be neoplastic or reactive in origin. The office of GISELA SCHUMACHER MD was notified the report was ready at 02/08/2017 11:27 AM. Final Electronic Signature: This report was electronically signed by Hermann Augustin MD on 02/08/2017 11 :29 AM. [facility] /
[2017-02-08] MEDS: cefTRIAXone SODIUM 1,000 MG in NORMAL SALINE MINI-BAG+ 100 ML IV SCH (11:38)
[2017-02-08] MEDS: GUAIFENESIN ER 600 MG TABLET PO SCH ×2 (11:39→21:14)
[2017-02-08] MEDS: SYSTANE LUBRICANT EYE EACHEYE SCH (11:47)
[2017-02-08] MEDS: [UNRECOGNIZED DRUG - OTHER] PO SCH (11:47)
[2017-02-08] MEDS: FOLIC ACID 1 MG PO SCH (11:48)
[2017-02-08] MEDS: FERROUS SULFATE 325 MG TABLET PO SCH (11:57)
[2017-02-08 13:08] LABS: CALCIUM 9.7 mg/dL (8.4-10.2); POTASSIUM 4.1 mmol/L (3.5-5.1)
[2017-02-08 13:38] LABS: BASOPHILS 0.7 % (0.0-2.0); EOSINOPHILS 1.4 % (0.0-6.0); HEMATOCRIT 33.7 % (36.0-48.0); HEMOGLOBIN 10.7 g/dL (12.0-16.0); LYMPHOCYTES 2.9 % (20.0-40.0); LYMPHOCYTES# 0.8 X 10^3uL (0.8-3.8); MEAN CORPUS. HGB CONCENTRATION 31.7 g/dL (32.0-36.0); MEAN CORPUSCULAR HEMOGLOBIN 27.5 pg (29.0-35.0); MEAN PLATELET VOLUME 7.7 fL (7.4-10.4); MONOCYTES 4.4 % (2.0-10.0); MONOCYTES# 1.3 X 10^3uL (0.2-1.0); NEUTROPHILS 90.6 % (54.0-75.0); NEUTROPHILS# 26.1 X 10^3uL (2.6-6.7); RED BLOOD COUNT 3.88 X 10^6uL (4.20-6.10); RED CELL DISTRIBUTION WIDTH 13.8 % (11.5-14.5); WHITE BLOOD COUNT 28.8 X 10^3uL (3.9-10.7)
[2017-02-08 13:39] LABS: BASOPHIL# 0.2 X 10^3uL (0.0-0.1); EOSINOPHILS# 0.4 X 10^3uL (0.0-0.4)
[2017-02-08 18:34] LABS: FOLATES 9.6 ng/mL (3.0-16.0)
[2017-02-09] MEDS: METHYLPREDNISOLONE SOD 125 MG/2 ML VIAL IV SCH (00:32)
[2017-02-09] MEDS: IPRATROPIUM/ALBUTEROL 0.5/3 MG 3 ML AMPUL.NEB IH SCH ×6 (02:54→21:56)
[2017-02-09 06:11] LABS: A/G RATIO 1.1; ALBUMIN 3.3 g/dL (3.5-5.0); ALKALINE PHOSPHATASE 125 U/L (38-126); ALT 39 U/L (9-52); AST 42 U/L (14-36); BILIRUBIN, TOTAL 0.3 mg/dL (0.2-1.3); BLOOD UREA NITROGEN 14 mg/dL (7-17); C-REACTIVE PROTEIN 65.7 mg/L (<10.0); CALCIUM 9.3 mg/dL (8.4-10.2); CHLORIDE 103 mmol/L (98-107); EST GLOMERULAR FILTRATION RATE > 60 mL/min; GLUCOSE 96 mg/dL (70-100); POTASSIUM 4.4 mmol/L (3.5-5.1); SODIUM 142 mmol/L (137-145); TOTAL PROTEIN 6.4 g/dL (6.3-8.2)
[2017-02-09 07:07] LABS: BASOPHIL % (Manual) 0 % (0.0-2.0); EOSINOPHIL % (Manual) 0 % (0.0-6.0); HEMOGLOBIN 10.3 g/dL (12.0-16.0); LYMPHOCYTE % (Manual) 8 % (20.0-40.0); MEAN CORPUSCULAR HEMOGLOBIN 27.6 pg (29.0-35.0); MONOCYTE % (Manual) 8 % (2.0-10.0); NEUTROPHIL % (Manual) 84 % (54.0-75.0); PLATELET COUNT 592 X 10^3uL (130-440); RED BLOOD COUNT 3.72 X 10^6uL (4.20-6.10); WHITE BLOOD COUNT 18.2 X 10^3uL (3.9-10.7)
[2017-02-09 07:08] LABS: ERYTHROCYTE SEDIMENTATION RATE 42 MM/HR (0-20); PLATELET ESTIMATE INCREASED
--- NOTE | 2017-02-09 09:14 | PROGRESS NOTE: IM SOAP ---
IM: PN Subjective General: fatigue (Slept better last night.), anxiety, depression (She is very anxious at her baseline. ), good appetite, no confusion, no diaphoresis, no fever, no chills Cardiovascular: chest pressure (She still has chest tightness.), no chest pain ( Now resolved.), no palpitations, no dizziness Respiratory: cough, sputum (Yellow. ), SOB (But continues to improve. ) Gastrointestinal: bloating (Better with small BM. ), constipation, no abdominal pain, no nausea, no vomiting Genitourinary: no flank pain Musculoskeletal: no pain (No joint pain related to her RA. ), no swelling Integumentary: no rashes Neurological: no headache, no numbness, no tingling IM: PN Objective Exam - I&O/Vital Signs I&O: Intake & Output 02/08/17 02/09/17 02/09/17 21:59 05:59 13:59 Intake Total 1190 450 Balance 1190 450 Intake: Oral 1190 450 Other: Urine Appearance Clear Urine Color Yellow Stool Size Moderate Stool Characteristics Soft Brown Voiding Method Toilet # Bowel Movements 1 Vital Signs: Last Vital Signs Temp 36.7 C 02/09/17 05:46 Pulse 95 H 02/09/17 05:46 Resp 20 02/09/17 05:46 BP 119/84 02/09/17 05:46 Pulse Ox 90 02/09/17 05:46 Oxygen Flow Rate 2 Oxygen Delivery Method Nasal Cannula - Constitutional General appearance: Present: average body habitus, cooperative, mild distress ( Concerned about still being in the hospital. ) - Head Head exam: Present: atraumatic, normal inspection - Eye Eye exam: Present: EOMI, PERRL - ENT ENT exam: Present: mucous membranes moist - Neck Neck exam: Present: full ROM. Absent: meningismus - Respiratory Respiratory exam: Present: decreased breath sounds (Throughout. ), rales ( Throughout. ), rhonchi, wheezes (Scattered.). Absent: accessory muscle use, chest wall tenderness, respiratory distress - Cardiovascular Cardiovascular exam: Present: RRR. Absent: systolic murmur - GI/Abdominal GI/Abdominal exam: Present: distended (Mld-moderate), normal bowel sounds, soft. 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.), RT - Lab Labs: Laboratory Last Values WBC 18.2 X 10^3uL (3.9-10.7) H 02/09/17 05:35 RBC 3.72 X 10^6uL (4.20-6.10) L 02/09/17 05:35 Hgb 10.3 g/dL (12.0-16.0) L 02/09/17 05:35 Hct 32.0 % (36.0-48.0) L 02/09/17 05:35 MCV 86.0 fL (80.0-100.0) 02/09/17 05:35 MCH 27.6 pg (29.0-35.0) L 02/09/17 05:35 MCHC 32.0 g/dL (32.0-36.0) 02/09/17 05:35 RDW Not Reportable 02/09/17 05:35 Plt Count 592 X 10^3uL (130-440) H 02/09/17 05:35 MPV Not Reportable 02/09/17 05:35 Total Counted 100 02/09/17 05:35 Neutrophils % 90.6 % (54.0-75.0) H 02/08/17 12:50 Neutrophils % (Manual) 84 % (54.0-75.0) H 02/09/17 05:35 Lymphocytes % 2.9 % (20.0-40.0) L 02/08/17 12:50 Lymphocytes % (Manual) 8 % (20.0-40.0) L 02/09/17 05:35 Monocytes % (Manual) 8 % (2.0-10.0) 02/09/17 05:35 Eosinophils % 1.4 % (0.0-6.0) 02/08/17 12:50 Eosinophils % (Manual) 0 % (0.0-6.0) 02/09/17 05:35 Basophils % 0.7 % (0.0-2.0) 02/08/17 12:50 Basophils % (Manual) 0 % (0.0-2.0) 02/09/17 05:35 Neutrophils # 26.1 X 10^3uL (2.6-6.7) H 02/08/17 12:50 Lymphocytes # 0.8 X 10^3uL (0.8-3.8) 02/08/17 12:50 Monocytes 4.4 % (2.0-10.0) 02/08/17 12:50 Monocytes # 1.3 X 10^3uL (0.2-1.0) H 02/08/17 12:50 Eosinophils # 0.4 X 10^3uL (0.0-0.4) 02/08/17 12:50 Basophils # 0.2 X 10^3uL (0.0-0.1) H 02/08/17 12:50 Platelet Estimate Increased 02/09/17 05:35 Polychromasia 20-39% of cells 02/08/17 05:00 Hypochromic-Microcytic 20-39% of cells 02/08/17 05:00 Poikilocytosis 20-39% of cells 02/08/17 05:00 Anisocytosis 10-19% of cells 02/09/17 05:35 ESR 42 MM/HR (0-20) H 02/09/17 05:35 D-Dimer 231 ng/mL 02/07/17 10:57 Sodium 142 mmol/L (137-145) 02/09/17 05:35 Potassium 4.4 mmol/L (3.5-5.1) 02/09/17 05:35 Chloride 103 mmol/L (98-107) 02/09/17 05:35 Carbon Dioxide 26 mmol/L (22-30) 02/09/17 05:35 BUN 14 mg/dL (7-17) 02/09/17 05:35 Creatinine 0.7 mg/dL (0.5-1.0) 02/09/17 05:35 GFR Calculation > 60 mL/min 02/09/17 05:35 Glucose 96 mg/dL (70-100) 02/09/17 05:35 Calcium 9.3 mg/dL (8.4-10.2) 02/09/17 05:35 Iron 14 ug/dL (37-170) L 02/08/17 05:00 TIBC 358 ug/mL (250-400) 02/08/17 05:00 Transferrin 240 mg/dL (206-381) 02/08/17 05:00 Transferrin % Sat 4 % (14-50) L 02/08/17 05:00 Total Bilirubin 0.3 mg/dL (0.2-1.3) 02/09/17 05:35 Direct Bilirubin 0.2 mg/dL (0.0-0.4) 02/07/17 06:25 AST 42 U/L (14-36) H 02/09/17 05:35 ALT 39 U/L (9-52) 02/09/17 05:35 Alkaline Phosphatase 125 U/L (38-126) 02/09/17 05:35 Troponin I < 0.012 ng/mL (0.00-0.034) 02/08/17 06:35 C-Reactive Protein 65.7 mg/L (<10.0) H 02/09/17 05:35 Total Protein 6.4 g/dL (6.3-8.2) 02/09/17 05:35 Albumin 3.3 g/dL (3.5-5.0) L 02/09/17 05:35 Albumin/Globulin Ratio 1.1 02/09/17 05:35 Vitamin B12 797 pg/mL (230-1050) 02/08/17 06:35 Folic Acid 9.6 ng/mL (3.0-16.0) 02/08/17 06:35 Assessment and Plan - Date of Encounter Date of Encounter: 02/09/17 (1) Pneumonia Status: Acute Assessment and plan: CT angiogram chest yesterday showed no evidence of mass or pulmonary embolism. However she has a "tree in bud" pattern most likely consistent with atypical pneumonia. She states that she had tuberculosis testing done prior to starting Rituxan which was negative. A T spot was sent this morning. She is on appropriate therapy with a azithromycin and Rocephin. She continues to have significant bronchospasm. Continue steroids, oxygen, incentive spirometer, and duo nebulizers. Appreciate respiratory therapy help. Anticipate discharge tomorrow. I have had a long discussion with patient and her regarding discharge and follow-up at home. She will be sent home with oxygen tank and they will drive back home 5-6 hours per day to [place]. Her is well aware that Sepideh Calles may need to go to the hospital if her symptoms worsen on their car ride home. Current Visit: Yes (2) Hypoxemia Status: Acute Assessment and plan: She was 82% on RA upon admission to the ED and 84% on RA this morning. She has required as much as 4L of oxygen. Now requiring 2L. She will require a oxygen tank with discharge tomorrow. Current Visit: Yes (3) Anemia Status: Acute Assessment and plan: Unknown baseline. However, she states that she has had mild anemia in the past treated successfully with oral supplementation x 2 months. She now has labs every 6 weeks as she is on Rituxan. Decreased hemoglobin and hematocrit again this morning which is most likely dilutional and secondary to her severe illness. Hemoccult x 1 negative. She has a history of rheumatoid arthritis. Iron studies show significant iron deficiency. B12 and folate are normal. Continue to heme check stools. Long discussion with patient and her . She will need close follow-up as an outpatient in [place]. Begin iron supplementation. Current Visit: Yes (4) Leukocytosis Status: Acute Assessment and plan: WBC was 15.4 on admission and increased to 28.8 yesterday. Her white blood cell count has decreased to 18.2 this morning. CRP has been elevated. Current Visit: Yes (5) Thrombocytosis Status: Acute Assessment and plan: Elevated platelets. Probably related to acute phase reactant. Platelets have decreased this morning. Current Visit: Yes (6) Rheumatoid arthritis Status: Chronic Assessment and plan: Overall stable. Continue chronic medications. Current Visit: Yes (7) Malnutrition Status: Acute Assessment and plan: Appreciate dietary consult. Ensure supplement started yesterday. Current Visit: Yes (8) Anxiety Status: Chronic Assessment and plan: She states that she has a history of anxiety and depression which is not currently being treated. We have provided a lot of reassurance. Current Visit: Yes - Time Spent With Patient Total time spent with greater than 50% in coordination of care (as documented) at patient's floor/unit and/or counseling patient: Greater than 35 minutes Estimated anticipated discharge: 1 day. Quality Questions - VTE Prophylaxis Assessment VTE Present on Admission?: No Patient at risk for venous thromboembolism?: Yes VTE Risk Level: High Risk Pharmaceutical VTE prophylaxis contraindication reason: N/A- VTE prophylaxsis ordered Mechanical VTE prophylaxis contraindication reason: N/A- VTE prophylaxsis ordered (1) Pneumonia Qualifiers: Pneumonia type: due to unspecified organism Laterality: bilateral Lung location: lower lobe of lung Qualified Code(s): J18.9 - Pneumonia, unspecified organism (3) Anemia Qualifiers: Anemia type: iron deficiency Iron deficiency anemia type: unspecified iron deficiency Qualified Code(s): D50.9 - Iron deficiency anemia, unspecified (4) Leukocytosis Qualifiers: Leukocytosis type: other Qualified Code(s): D72.828 - Other elevated white blood cell count (6) Rheumatoid arthritis Qualifiers: Rheumatoid factor presence: unspecified presence Laterality: unspecified laterality
[2017-02-09] MEDS: cefTRIAXone SODIUM 1,000 MG in NORMAL SALINE MINI-BAG+ 100 ML IV SCH (09:24)
[2017-02-09] MEDS: CALCIUM CARBONATE 500 MG TABLET PO SCH (09:25)
[2017-02-09] MEDS: CHOLECALCIFEROL 1,000 UNIT CAPSULE PO SCH (09:25)
[2017-02-09] MEDS: predniSONE 20 MG TABLET PO SCH (09:25)
[2017-02-09] MEDS: GUAIFENESIN ER 600 MG TABLET PO SCH ×2 (09:26→21:56)
[2017-02-09] MEDS: AZITHROMYCIN 250 MG TABLET PO SCH (09:26)
[2017-02-09] MEDS: FERROUS SULFATE 325 MG TABLET PO SCH (09:27)
[2017-02-09] MEDS: FUROSEMIDE 20 MG/2 ML VIAL IV SCH (09:27)
[2017-02-09] MEDS: ENOXAPARIN SODIUM 40 MG/0.4 ML SYR SUBCUT SCH (09:27)
[2017-02-09] MEDS: [UNRECOGNIZED DRUG - OTHER] PO SCH (09:28)
[2017-02-09] MEDS: FOLIC ACID 1 MG PO SCH (09:28)
[2017-02-09] MEDS: SYSTANE LUBRICANT EYE EACHEYE SCH (09:28)
[2017-02-09] MEDS ORDERED: ZOLPIDEM TARTRATE 5 MG TABLET PO PRN (19:33)
[2017-02-10] MEDS: IPRATROPIUM/ALBUTEROL 0.5/3 MG 3 ML AMPUL.NEB IH SCH ×4 (06:12→14:49)
[2017-02-10 08:02] LABS: BASOPHIL# 0.1 X 10^3uL (0.0-0.1); BASOPHILS 0.5 % (0.0-2.0); EOSINOPHILS 1.2 % (0.0-6.0); EOSINOPHILS# 0.2 X 10^3uL (0.0-0.4); HEMATOCRIT 32.7 % (36.0-48.0); HEMOGLOBIN 10.4 g/dL (12.0-16.0); LYMPHOCYTES 8.9 % (20.0-40.0); LYMPHOCYTES# 1.5 X 10^3uL (0.8-3.8); MEAN CORPUS. HGB CONCENTRATION 31.7 g/dL (32.0-36.0); MEAN CORPUSCULAR HEMOGLOBIN 27.1 pg (29.0-35.0); MEAN PLATELET VOLUME 7.4 fL (7.4-10.4); MONOCYTES 8.9 % (2.0-10.0); MONOCYTES# 1.5 X 10^3uL (0.2-1.0); NEUTROPHILS 80.5 % (54.0-75.0); NEUTROPHILS# 13.3 X 10^3uL (2.6-6.7); PLATELET COUNT 679 X 10^3uL (130-440); RED BLOOD COUNT 3.82 X 10^6uL (4.20-6.10); RED CELL DISTRIBUTION WIDTH 14.2 % (11.5-14.5); WHITE BLOOD COUNT 16.5 X 10^3uL (3.9-10.7)
[2017-02-10 08:13] LABS: ALKALINE PHOSPHATASE 154 U/L (38-126); ALT 70 U/L (9-52); AST 61 U/L (14-36); BILIRUBIN, TOTAL 0.4 mg/dL (0.2-1.3); BLOOD UREA NITROGEN 15 mg/dL (7-17); CALCIUM 9.4 mg/dL (8.4-10.2); EST GLOMERULAR FILTRATION RATE > 60 mL/min; GLUCOSE 84 mg/dL (70-100); POTASSIUM 4.6 mmol/L (3.5-5.1); SODIUM 138 mmol/L (137-145)
[2017-02-10 08:16] LABS: TOTAL PROTEIN 6.5 g/dL (6.3-8.2)
[2017-02-10] MEDS: FERROUS SULFATE 325 MG TABLET PO SCH (08:34)
[2017-02-10] MEDS: CALCIUM CARBONATE 500 MG TABLET PO SCH (08:34)
[2017-02-10] MEDS: CHOLECALCIFEROL 1,000 UNIT CAPSULE PO SCH (08:34)
[2017-02-10] MEDS: FOLIC ACID 1 MG PO SCH (08:35)
[2017-02-10] MEDS: SYSTANE LUBRICANT EYE EACHEYE SCH (08:35)
[2017-02-10] MEDS: predniSONE 20 MG TABLET PO SCH (08:35)
[2017-02-10] MEDS: ENOXAPARIN SODIUM 40 MG/0.4 ML SYR SUBCUT SCH (08:35)
[2017-02-10] MEDS: AZITHROMYCIN 250 MG TABLET PO SCH (08:35)
[2017-02-10] MEDS: [UNRECOGNIZED DRUG - OTHER] PO SCH (08:35)
[2017-02-10 09:06] LABS: A/G RATIO 1.1; ALBUMIN 3.4 g/dL (3.5-5.0); CHLORIDE 100 mmol/L (98-107)
[2017-02-10] MEDS: GUAIFENESIN ER 600 MG TABLET PO SCH (09:42)
[2017-02-10] MEDS: cefTRIAXone SODIUM 1,000 MG in NORMAL SALINE MINI-BAG+ 100 ML IV SCH (09:42)
[2017-02-10 11:16] VITALS: BP 133/92; PULSE 90; RESP 16; TEMP 98.2; O2SAT 90
--- NOTE | 2017-02-10 13:09 | PROGRESS NOTE: IM SOAP ---
IM: PN Subjective Cardiovascular: no chest pain Respiratory: cough, sputum (Yellow. ), wheeze, SOB (But continues to improve. ) IM: PN Objective Exam - I&O/Vital Signs I&O: Intake & Output 02/09/17 02/10/17 02/10/17 21:59 05:59 13:59 Intake Total 0 350 350 Balance 1930 350 350 Weight 67.5 kg Intake: Oral 0 350 350 Other: Urine Appearance Clear Clear Urine Color Pale Pale Yellow Yellow Stool Size Small Small Stool Characteristics Formed Formed Voiding Method Toilet Toilet # Voids 10 # Bowel Movements 3 Vital Signs: Last Vital Signs Temp 36.8 C 02/10/17 11:00 Pulse 90 02/10/17 11:00 Resp 16 02/10/17 11:00 BP 133/92 02/10/17 11:00 Pulse Ox 90 02/10/17 11:00 Oxygen Flow Rate 1 Oxygen Delivery Method Nasal Cannula - Respiratory Respiratory exam: Present: decreased breath sounds, wheezes. Absent: rales, rhonchi - Cardiovascular Cardiovascular exam: Present: RRR. Absent: systolic murmur - GI/Abdominal GI/Abdominal exam: Present: soft. Absent: tenderness - Extremities Exam Extremities exam: Absent: calf tenderness, edema, tenderness - Psychiatric Psychiatric exam: Absent: anxious - Lab Labs: Laboratory Last Values WBC 16.5 X 10^3uL (3.9-10.7) H 02/10/17 06:05 RBC 3.82 X 10^6uL (4.20-6.10) L 02/10/17 06:05 Hgb 10.4 g/dL (12.0-16.0) L 02/10/17 06:05 Hct 32.7 % (36.0-48.0) L 02/10/17 06:05 MCV 85.0 fL (80.0-100.0) 02/10/17 06:05 MCH 27.1 pg (29.0-35.0) L 02/10/17 06:05 MCHC 31.7 g/dL (32.0-36.0) L 02/10/17 06:05 RDW 14.2 % (11.5-14.5) 02/10/17 06:05 Plt Count 679 X 10^3uL (130-440) H 02/10/17 06:05 MPV 7.4 fL (7.4-10.4) 02/10/17 06:05 Total Counted 100 02/09/17 05:35 Neutrophils % 80.5 % (54.0-75.0) H 02/10/17 06:05 Neutrophils % (Manual) 84 % (54.0-75.0) H 02/09/17 05:35 Lymphocytes % 8.9 % (20.0-40.0) L 02/10/17 06:05 Lymphocytes % (Manual) 8 % (20.0-40.0) L 02/09/17 05:35 Monocytes % (Manual) 8 % (2.0-10.0) 02/09/17 05:35 Eosinophils % 1.2 % (0.0-6.0) 02/10/17 06:05 Eosinophils % (Manual) 0 % (0.0-6.0) 02/09/17 05:35 Basophils % 0.5 % (0.0-2.0) 02/10/17 06:05 Basophils % (Manual) 0 % (0.0-2.0) 02/09/17 05:35 Neutrophils # 13.3 X 10^3uL (2.6-6.7) H 02/10/17 06:05 Lymphocytes # 1.5 X 10^3uL (0.8-3.8) 02/10/17 06:05 Monocytes 8.9 % (2.0-10.0) 02/10/17 06:05 Monocytes # 1.5 X 10^3uL (0.2-1.0) H 02/10/17 06:05 Eosinophils # 0.2 X 10^3uL (0.0-0.4) 02/10/17 06:05 Basophils # 0.1 X 10^3uL (0.0-0.1) 02/10/17 06:05 Platelet Estimate Increased 02/09/17 05:35 Polychromasia 20-39% of cells 02/08/17 05:00 Hypochromic-Microcytic 20-39% of cells 02/08/17 05:00 Poikilocytosis 20-39% of cells 02/08/17 05:00 Anisocytosis 10-19% of cells 02/09/17 05:35 ESR 42 MM/HR (0-20) H 02/09/17 05:35 D-Dimer 231 ng/mL 02/07/17 10:57 Sodium 138 mmol/L (137-145) 02/10/17 06:05 Potassium 4.6 mmol/L (3.5-5.1) 02/10/17 06:05 Chloride 100 mmol/L (98-107) 02/10/17 06:05 Carbon Dioxide 28 mmol/L (22-30) 02/10/17 06:05 BUN 15 mg/dL (7-17) 02/10/17 06:05 Creatinine 0.6 mg/dL (0.5-1.0) 02/10/17 06:05 GFR Calculation > 60 mL/min 02/10/17 06:05 Glucose 84 mg/dL (70-100) 02/10/17 06:05 Calcium 9.4 mg/dL (8.4-10.2) 02/10/17 06:05 Iron 14 ug/dL (37-170) L 02/08/17 05:00 TIBC 358 ug/mL (250-400) 02/08/17 05:00 Transferrin 240 mg/dL (206-381) 02/08/17 05:00 Transferrin % Sat 4 % (14-50) L 02/08/17 05:00 Total Bilirubin 0.4 mg/dL (0.2-1.3) 02/10/17 06:05 Direct Bilirubin 0.2 mg/dL (0.0-0.4) 02/07/17 06:25 AST 61 U/L (14-36) H 02/10/17 06:05 ALT 70 U/L (9-52) H 02/10/17 06:05 Alkaline Phosphatase 154 U/L (38-126) H 02/10/17 06:05 Troponin I < 0.012 ng/mL (0.00-0.034) 02/08/17 06:35 C-Reactive Protein 65.7 mg/L (<10.0) H 02/09/17 05:35 Total Protein 6.5 g/dL (6.3-8.2) 02/10/17 06:05 Albumin 3.4 g/dL (3.5-5.0) L 02/10/17 06:05 Albumin/Globulin Ratio 1.1 02/10/17 06:05 Vitamin B12 797 pg/mL (230-1050) 02/08/17 06:35 Folic Acid 9.6 ng/mL (3.0-16.0) 02/08/17 06:35 Assessment and Plan - Date of Encounter Date of Encounter: 02/10/17 (1) Pneumonia Status: Acute Assessment and plan: Improving but still elevated WBC count. Pt strongly desires to be discharged. She is aware of the risk of requiring rehospitalization, and other adverse effects from being discharged early. RA pulse ox 85%. She will leave for [place] on discharge and we will forego portable O2 for drive home. Combivent inhaler - RT to demonstrate technique. Current Visit: Yes (2) Hypoxemia Status: Acute Current Visit: Yes (3) Leukocytosis Status: Acute Assessment and plan: Improving Current Visit: Yes (4) Thrombocytosis Status: Acute Assessment and plan: Persistent, secondary to infection Current Visit: Yes (5) Anemia Status: Acute Assessment and plan: Stable Current Visit: Yes (6) Anxiety Status: Chronic Assessment and plan: Stable Current Visit: Yes (7) Rheumatoid arthritis Status: Chronic Assessment and plan: Stable Current Visit: Yes - Time Spent With Patient Total time spent with greater than 50% in coordination of care (as documented) at patient's floor/unit and/or counseling patient: Estimated anticipated discharge: 1 day. (3) Leukocytosis Qualifiers: Leukocytosis type: other Qualified Code(s): D72.828 - Other elevated white blood cell count (7) Rheumatoid arthritis Qualifiers: Rheumatoid factor presence: unspecified presence Laterality: unspecified laterality
[2017-02-10] MEDS ORDERED: IPRATROPIUM/ALBUTEROL 1 INH INHALER INHALATION ONE (14:38)
[2017-02-10] MEDS ORDERED: INHALER, ASSIST DEVICES 1 PKT EACH ONE (14:38)
[2017-02-10] MEDS ORDERED: IPRATROPIUM/ALBUTEROL 1 INH INHALER INHALATION SCH ×2 (17:00)
--- NOTE | 2017-02-11 08:03 | DISCHARGE SUMMARY ---
DATE OF ADMISSION: 02/06/17 DATE OF DISCHARGE: 02/10/17 ATTENDING PHYSICIAN: Christo Antonio MD DIAGNOSES 1. Pneumonia. 2. Hypoxia. 3. Leukocytosis. 4. Anemia. 5. Thrombocytosis. 6. Rheumatoid arthritis. 7. Anxiety HISTORY OF PRESENT ILLNESS: Patient is 71-year-old female, summer resident visiting from [place], presented to the Emergency Room with upper respiratory symptoms. Symptoms included postnasal drainage, productive cough and increasing shortness of breath. Her [place] Family Physician prescribed Amoxicillin for the 4 days prior to admission. The morning of admission she awoke with severe shortness of breath, chills, sweats, productive cough with yellow phlegm, gurgling in her chest, wheezing and chest tightness. She had poor p.o. fluid and food intake. She had no previous lung issues. She had no previous lung issues. No fevers. Please see previously dictated history and physical per Dr. Rodriguez for further details. HOSPITAL COURSE: The patient was admitted with pneumonia with associated hypoxia. She was started on Rocephin, Z-pack, IV steroids, DuoNeb nebulizer treatments and oxygen at 3 liters per minute. Respiratory therapy consult was provided. Blood in the sputum and sputum cultures showed no growth. Patient developed profound leukocytosis with white blood cell count rising from 15.4 to 28.8 prior to her dropping down to 16.5 by the time of discharge. Patient had anemia and had a discharge hemoglobin and hematocrit of 10.4/32.7, felt to be iron deficient, for which she was placed on ferrous sulfate. Also she had thrombocytosis with platelet count rising up to 721,000 before dropping down to 679,000 by the time of discharge. Patient did have issues with anxiety during her stay. Rheumatoid arthritis remains stable. By the time she was discharged, overall she felt that she was improving. I did recommend that she stay an extra 1-2 days, but she was strongly desired to return to [place] and is driving back to [place]. Room air pulse oxygen was 85% at 7500 foot elevation, but she will be driving down to [place] upon discharge, and I do not believe she will require oxygen at lower elevation. She remains at high risk for re- hospitalization for related diagnoses. DISCHARGE INSTRUCTIONS: Patient may participate in activities as able and she will be traveling down to lower elevation upon discharge from the hospital. She is on a regular diet. She will follow up with her [place] physician in 7 days. She is to call or return to clinic or go to the Emergency Room if she begins to worsen. DISCHARGE MEDICATIONS Aspirin 81 mg p.o. daily. Calcium carbonate 500 mg p.o. daily. Vitamin D 1000 International Units p.o. daily. Ferrous sulfate 325 mg p.o. daily x3 months. Folic acid 4 mg p.o. daily. Guaifenesin 1200 mg p.o. b.i.d. Levaquin 750 mg p.o. daily x5 days. Methotrexate 20 mg p.o. q.week. Prednisone 40 mg p.o. daily for 3 days, 20 mg p.o. daily for 3 days and then will resume 5 mg p.o. daily. Rituxan PRN. MTDD
[2017-02-21 15:18] LABS: NIL (NEG) CONTROL SPOT COUNT 0; PANEL A SPOT COUNT 0; PANEL B SPOT COUNT 0; TSPOT TEST NEGATIVE
== END 2017-02-10 13:18 | disposition home or self-care (01) | DRG 194 ==
LOC: ER 08:14 → OBSVTOIN 09:39 → IN 09:39 → INTOOBSV 09:39 → OBSVTOIN 02-07 09:32
PROVIDERS: ADMIT Family Medicine; ATTEND Family Medicine
DX: J18.0 Bronchopneumonia, unspecified organism (principal); E46 Unspecified protein-calorie malnutrition; D72.829 Elevated white blood cell count, unspecified; D47.3 Essential (hemorrhagic) thrombocythemia; F41.1 Generalized anxiety disorder; M06.9 Rheumatoid arthritis, unspecified; D64.9 Anemia, unspecified; Z79.899 Other long term (current) drug therapy
CPT/HCPCS: 36415; 71010; 71020; 71275; 80048; 80053; 80076; 82270; 82607; 82747; 83540; 84466; 84484; 85007; 85025; 85027; 85379; 85651; 86140; 86481; 87040; 87070; 87205; 93005; 93010; 93041; 94640; 94664; 94668; 96365; 96375; 99220; 99285; E0555; G0378; J0696; J1650; J1940; J2930; J7030; J7620; Q0144